=== PATIENT | female | born 1945 | race Caucasian/White ===

== ENCOUNTER 2017-09-30 13:12 | Emergency (ER) | payer MEDICARE, OTHER ==
[~2017-09-30 13:12] MED LIST: CHOL500025 PO; DESI10TA PO; FLUO40CA67 PO; THYR97.55 PO; ZOLP-1 PO
[2017-09-30] MEDS ORDERED: LORA-636 PO (13:24)
--- NOTE | 2017-09-30 13:32 | ER Report ---
History and Physical Time Seen By MD: 13:25 Hx. of Stated Complaint: PT PRESENTS WITH INJURY TO R FOOT AND KNEE. DEFORMITIY OF 2ND TOE AND ABRASION TO KNEE HPI/ROS CHIEF COMPLAINT: Right toe and foot pain HISTORY OF PRESENT ILLNESS: 9-year-old female mechanical fall tripping on a flip-flop shoe resulting in deformity to her 3rd toe on her right foot and some abrasions to the right knee no head or neck trauma lost consciousness focal complaints otherwise unremarkable REVIEW OF SYSTEMS: Respiratory: No cough, no dyspnea. Cardiovascular: No chest pain, no palpitations. Gastrointestinal: No vomiting, no abdominal pain. Musculoskeletal: Right foot and toe pain Remainder of the 14 system rev: Yes Allergies: Coded Allergies: Penicillins (Unverified Allergy, Mild, Hives, 09/30/17) Home Meds Active Scripts Thyroid,Pork (NATURE-THROID) 97.5 Mg Tablet, 1 TAB PO DAILY, #30 TAB 0 Refills Prov:KIT VIEYRA APRN [employer] 11/13/14 Reported Medications Lorazepam (LORAZEPAM) 2 Mg Tablet, 2 MG PO QHS PRN for PRN 09/30/17 Zolpidem Tartrate (AMBIEN) 5 Mg Tablet, 1 TAB PO QHS PRN for SLEEP 07/28/14 Cholecalciferol (Vitamin D3) (VITAMIN D3) 5,000 Unit Tablet, 1 TAB PO QWEEK 07/28/14 Fluoxetine Hcl (FLUOXETINE HCL) 40 Mg Capsule, 1 CAP PO QDAY, CAPSULE 07/28/14 Desipramine Hcl (DESIPRAMINE HCL) 10 Mg Tablet, 1 TAB PO QDAY 07/28/14 Reviewed Nurses Notes: Yes Old Medical Records Reviewed: Yes Smoking Status: Never Smoker Hx Substance Use Disorder: No Hx Alcohol Use: Yes (RARE) Constitutional Physical Exam General appearance: [Alert no distress.] Respiratory: Chest is non tender, lungs are clear to auscultation. Cardiac: Regular rate and rhythm [ ] Examination obvious deformity to the 3rd toe with valgus angulation neurovascular intact otherwise unremarkable right knee examination shows an abrasion to the inferior aspect L otherwise unremarkable for range of motion and ambulate DIFFERENTIAL DIAGNOSIS: After history and physical exam differential diagnosis was considered for toe fracture with dislocation Medical Decision Making ED Course/Re-evaluation ED Course ED clinical course 9-year-old female mechanical fall and up with a fracture dislocation of her 3rd toe of her right foot patient had the toe reduced tolera kelin well x-ray confirms and non-dislocated subtle fracture with a reduced dislocated toe patient reported a hard soled CAM walking both boot and will follow up with primary care Procedural note reduction of the toe traction countertraction toe reduced wit hout any issue no anesthetic was utilized patient tolerated well Decision to Disposition Date: Sep 30, 2017 Decision to Disposition Time: 14:00 Depart Departure Latest Vital Signs Impression: Primary Impression: Dislocated toe Condition: Improved Disposition: HOME OR SELF-CARE Referrals: KIT VIEYRA APRN [facility] (PCP) 5 Days Patient Instructions: Toe Fracture (DC) CHRIS NASCIMENTO MD Sep 30, 2017 13:32
[2017-09-30 14:00] VITALS: BP 98/52
[2017-09-30] MEDS ORDERED: DIPHTH/TETANUS/ACEL. PERTUSSIS IM ONLY ONE (14:00)
--- NOTE | 2017-09-30 14:10 | RADIOLOGY IMAGING REPORT ---
FACILITY: [facility] [place] PATIENT NAME: Grace Tucker : 1945 MR: [id number] V: [id number] EXAM DATE: ORDERING PHYSICIAN: CHRIS NASCIMENTO TECHNOLOGIST: Location: [facility] [place] Patient: Garce Tucker : 1945 Visit/Account:[id number] Date of Sevice: 09/30/2017 Exam type: FOOT 2 VIEW RIGHT History: Trauma to second digit Comparison: None. Findings: Several tiny radiopaque densities project just lateral to the PIP joint of the right second toe. The se are not ideally seen due to overlapping shadows on the lateral view. There is a mild hallux valgu s involving the right first metatarsal joint. IMPRESSION: 1. Several tiny radiopaque densities project just lateral to the PIP joint of the right second toe. This could represent a peritendinous calcination occasions or possibly tiny avulsion fracture fragme nts given the clinical history of trauma to the right second digit. This area is not ideally seen on the lateral view due to overlapping shadows from the adjacent toes. Report Dictated By: Carleen Pablo MD at 09/30/2017 2:05 PM Report E-Signed By: Carleen Pablo MD at 09/30/2017 2:07 PM WSN:[email or web address]
== END 2017-09-30 14:08 | disposition home or self-care (01) ==
LOC: ER 13:40
DX: S93.104A Unspecified dislocation of right toe(s), initial encounter (principal); W01.0XXA Fall on same level from slipping, tripping and stumbling without subsequent striking against object, initial encounter
CPT/HCPCS: 90471; 90715; 99283